=== PATIENT | female | born 1970 | race Caucasian/White ===

== ENCOUNTER 2017-03-18 09:50 | Emergency (ER) | payer OTHER ==
[~2017-03-18] VITALS: Ht 160 cm; Wt 67.1 kg
--- NOTE | ~2017-03-18 | EKG ---
[address] [place] [address] ELECTROCARDIOGRAM REPORT Name: RUFINA ROSAS Room #: [facility]#: [id number] Admission: 03/18/17 Attend Phys: Discharge: 03/18/17 Date of : 72 Report #: [id number] THIS REPORT FOR: //name// [facility] ED Test Date: 2017-03-18 Test Time: 10:12:25 Pat Name: RUFINA ROSAS Department: Room: Gender: F Motor Analyst: CONCHITA : 1970 Requested By: Fernando Chew Order Number: [id number] MD: Bishop Mullins Measurements Intervals [place] Rate: 66 P: 51 CO: 148 QRS: 15 QRSD: 85 T: 27 QT: 386 QTc: 405 Interpretive Statements Sinus rhythm No significant abnormality No previous ECG available for comparison Electronically Signed On 03-18-2017 13:57:14 CDT by Bishop Mullins [email or web address] <ELECTRONICALLY SIGNED> By: Bishop Mullins MD, [facility] 03/18/17 1357 1012 1012 Bishop Mullins MD, FACC /EPI
[2017-03-18] MEDS ORDERED: PHENAZOPYRIDIN100 M1 PO (10:01)
[2017-03-18] MEDS ORDERED: KETOCONAZOLE 2200 MG PO (10:02)
[2017-03-18] MEDS ORDERED: CIPRO500 M1 PO (10:02)
[2017-03-18 10:24] LABS: URINE BILIRUBIN NEGATIVE (Negative); URINE BLOOD NEGATIVE (Negative); URINE COLOR YELLOW; URINE GLUCOSE-RANDOM* NEGATIVE (Negative); URINE KETONES NEGATIVE (Negative); URINE NITRITE POSITIVE (Negative); URINE PROTEIN (DIPSTICK) TRACE (Negative)
[2017-03-18 10:27] LABS: MCH 28.5 pg (26.0-34.0)
[2017-03-18 10:29] LABS: HEMOGLOBIN 14.9 gm/dL (12.0-15.0); MCHC 33.2 g/dL (28.0-37.0); RBC 5.23 mil/uL (4.20-5.00); RDW 13.6 % (10.5-14.5); WBC 11.1 thou/uL (4.0-11.0)
[2017-03-18 10:30] LABS: MANUAL DIFF YES
[2017-03-18 10:31] LABS: CALCIUM 9.7 mg/dL (8.5-10.1); POTASSIUM 4.5 mmol/L (3.5-5.1)
[2017-03-18] MEDS ORDERED: PROGESTERONE200 MG PO (10:32)
[2017-03-18 10:33] LABS: BACTERIA 1-9 Few /HPF (None Seen); CASTS None Seen /LPF (None Seen); CRYSTALS None Seen /LPF (None Seen); SQUAMOUS 0-3 Few /LPF (0-3); URINE RBC 0-2 Rare /HPF (0-2); URINE WBC None Seen /HPF (0-5)
[2017-03-18] MEDS ORDERED: WP THYROID PO (10:33)
[2017-03-18] MEDS ORDERED: ALDACTONE50 MG PO (10:34)
[2017-03-18] MEDS ORDERED: VITAMIN B-12500 MCG PO (10:35)
[2017-03-18] MEDS ORDERED: VITAMIN D3400 UNIT PO (10:36)
[2017-03-18] MEDS ORDERED: DHEA50 MG PO (10:36)
[2017-03-18] MEDS ORDERED: PROBIOTIC1 EAC2 PO (10:36)
[2017-03-18 10:37] LABS: ALBUMIN 4.3 g/dL (3.4-5.0); TOTAL BILIRUBIN 0.6 mg/dL (<0.1-1.0); TOTAL PROTEIN 8.8 g/dL (6.4-8.2)
[2017-03-18 10:49] LABS: ABSOLUTE NEUTROPHILS 6.3 thou/uL (1.4-8.2); ANISOCYTOSIS 1+; TOTAL CELL COUNT 100
[2017-03-18 10:50] LABS: PLATELET COUNT 242 thou/uL (150-400)
[2017-03-18 12:57] VITALS: BP 111/67
== END 2017-03-18 12:54 | disposition home or self-care (01) ==
LOC: ER 09:50
PROVIDERS: Nurse Practitioner
DX: N39.0 Urinary tract infection, site not specified (principal); Z88.5 Allergy status to narcotic agent

== ENCOUNTER → 2018-05-17 | Outpatient (CLI) | payer OTHER ==
[~2018-05-17] VITALS: Ht 162.6 cm; Wt 70.8 kg
[~2018-05-17] MED LIST: ALDACTONE50 MG PO; CIPRO500 M1 PO; CRANBERRY500 MG PO; DHEA50 MG PO; KETOCONAZOLE 2200 MG PO; METHYL B-12 PO; PHENAZOPYRIDIN100 M1 PO; PROBIOTIC1 EAC2 PO; PROGESTERONE200 MG PO; SYNTHROID50 MCG PO; VITAMIN B-12500 MCG PO; VITAMIN D3400 UNIT PO; WP THYROID PO
--- NOTE | ~2018-05-17 | P ---
[facility] [place] [address] PROCEDURE REPORT Name: RUFINA ROSAS Room #: [facility]#: [id number] Admission: 05/17/18 Attend Phys: Alfonzo Cedeno MD Discharge: Date of : 72 Report #: [id number] THIS REPORT FOR: //name// CC: Alfonzo Zuniga BRIEF HISTORY: The patient is a 48-year-old woman with a recent change in bowel habits. PREOPERATIVE DIAGNOSIS: Change in bowel habits. POSTOPERATIVE DIAGNOSIS: Diminutive polyp, cecum. MEDICATIONS: Deep sedation with propofol per anesthesia. SPECIMEN: Cecal polyp. ESTIMATED BLOOD LOSS: 3 mL. PROCEDURE: Colonoscopy to cecum and terminal ileum with biopsy. FINDINGS: Prior to propofol sedation, procedure of colonoscopy discussed with the patient as well as potential risks and its complications. She indicates she understands and desires to proceed. DESCRIPTION OF PROCEDURE: With the patient in left lateral decubitus position, the Olympus video colonoscope was introduced in the rectum, advanced under direct vision to the cecum. Done with minimal difficulty. The cecum was identified by the ileocecal valve and the appendiceal orifice. I was able to visualize the distal segment of terminal ileum, which was inspected and noted to be unremarkable. At that point, scope was slowly withdrawn and careful circumferential views obtained. The prep was excellent. The mucosa was within normal limits, normal vascular pattern, normal light reflex. As we withdrew the scope, a diminutive polyp was seen and removed by biopsy from the cecum. As the scope was withdrawn through the remainder of the colon, no other mucosal abnormalities were seen. The mucosa throughout the remainder of the colon was normal. The scope was withdrawn and upon retroflexion, no abnormalities were seen. Scope was withdrawn. The patient tolerated the procedure well. CONDITION OF THE PATIENT UPON DISCHARGE: Following procedure, the patient drowsy, aroused and conversant. She will be discharged home when fully ambulatory INSTRUCTIONS TO THE PATIENT AND FAMILY AT THE TIME OF DISCHARGE: One diminutive polyp identified. We will follow up on the pathology. If this is an adenoma, she will return in 5 years. If it is hyperplastic, then 10 years would be [address] [address] PROCEDURE REPORT Name: RUFINA ROSAS [id number] Admission: 05/17/18 Attend Phys: Alfonzo Cedeno MD Discharge: Date of : 72 Report #: [id number] indicated. This is the patient's first colonoscopy. Withdrawal time from the cecum was 8 minutes 59 seconds. By: [id number] Alfonzo Cedeno MD /nt
--- NOTE | ~2018-05-17 | PATH ---
[facility] [place] [address] [address] PATHOLOGY RPT PROCEDURE Name: KERRY ROSAS [facility].#: [id number] Admission: 05/17/18 Date of : 72 Discharge: Report #: [id number] Path Case #: [id number] [facility] Accession Number: [id number] . 01 Material submitted: . CECAL POLYP BX . 01 Clinical history: . Pre-OP DX: Change in bowel habits Post-OP DX: Colon polyp . 02 Diagnosis: Colonic mucosa, "cecal polyp biopsy": - Tubular adenoma. - There is no evidence of high grade dysplasia or malignancy. . (SHA:mml; 05/20/18) QL/05/20/2018 . 02 Electronically signed: . Irwin Baum MD, Pathologist NPI- [id number] . 01 Gross description: . Received in formalin labeled "Antonio, Kerry, cecal polyp BX," is a single segment of darby soft tissue measuring 0.5 cm in maximum dimension. The specimen is entirely submitted in cassette A1. (TSD; 05/17/2018) TOB/TOB . 02 Pathologist provided ICD-10: D12.0 . 02 CPT . 411902 Specimen Comment: A courtesy copy of this report has been sent to Specimen Comment: [phone], . Specimen Comment: Report sent to / DR JAMIL Performed at: [address] [place] [id number] MD Alfredo Ariza MD Phone: [phone] Performed at: [address] [id number] MD Casi Moeller MD Phone: [phone]
== END | disposition home or self-care (01) ==
LOC: GI 07:50
DX: D12.0 Benign neoplasm of cecum (principal); E03.9 Hypothyroidism, unspecified; Z98.41 Cataract extraction status, right eye; Z98.890 Other specified postprocedural states; Z87.442 Personal history of urinary calculi; Z79.899 Other long term (current) drug therapy; Z88.6 Allergy status to analgesic agent
CPT/HCPCS: 62110; 62900

== ENCOUNTER 2019-04-26 10:48 | Emergency (ER) | payer OTHER ==
[~2019-04-26] VITALS: Ht 160 cm; Wt 68.0 kg
[2019-04-26] MEDS ORDERED: CLARITIN10 MG PO (11:11)
[2019-04-26 11:19] LABS: ABSOLUTE NEUTROPHILS 2.9 thou/uL (1.4-8.2); BASOPHILS 1.1 % (0.0-2.0); EOSINOPHILS 1.7 % (0.0-3.0); HEMATOCRIT 41.5 % (37.0-47.0); HEMOGLOBIN 13.7 gm/dL (12.0-15.0); LYMPHOCYTES 36.1 % (24.0-44.0); MCV 88.1 fL (80.0-100.0); MONOCYTES 8.6 % (1.0-8.0); PLATELET COUNT 293 thou/uL (150-400); POLYS 52.5 % (36.0-66.0); RBC 4.71 mil/uL (4.20-5.00); RDW 13.6 % (10.5-14.5); WBC 5.6 thou/uL (4.0-11.0)
[2019-04-26 11:25] LABS: CALCIUM 9.3 mg/dL (8.5-10.1); CREATININE 0.9 mg/dL (0.6-1.0); POTASSIUM 3.8 mmol/L (3.5-5.1)
[2019-04-26 11:27] LABS: URINE BILIRUBIN NEGATIVE (Negative); URINE BLOOD NEGATIVE (Negative); URINE CLARITY CLEAR; URINE COLOR YELLOW; URINE GLUCOSE-RANDOM* NEGATIVE (Negative); URINE KETONES NEGATIVE (Negative); URINE LEUKOCYTES-REFLEX NEGATIVE (Negative); URINE NITRITE-REFLEX NEGATIVE (Negative); URINE PROTEIN (DIPSTICK) NEGATIVE (Negative); URINE SPECIFIC GRAVITY 1.015 (1.005-1.035); URINE UROBILINOGEN 0.2 E.U./dl (0.2-1.0)
[2019-04-26 11:31] LABS: ALBUMIN 3.9 g/dL (3.4-5.0); TOTAL BILIRUBIN 0.4 mg/dL (<0.1-1.0); TOTAL PROTEIN 8.5 g/dL (6.4-8.2)
[2019-04-26] MEDS ORDERED: BENTYL 20 MG TA20 M1 PO (12:27)
[2019-04-26] MEDS ORDERED: ONDANSETRON HCL4 M2 PO (12:27)
[2019-04-26 12:41] VITALS: BP 95/57
== END 2019-04-26 13:12 | disposition home or self-care (01) ==
LOC: ER 10:48
PROVIDERS: Nurse Practitioner Family
DX: R30.0 Dysuria (principal); R19.7 Diarrhea, unspecified; R53.83 Other fatigue; E03.9 Hypothyroidism, unspecified; Z90.89 Acquired absence of other organs; Z87.442 Personal history of urinary calculi; Z98.890 Other specified postprocedural states; Z98.41 Cataract extraction status, right eye; Z88.5 Allergy status to narcotic agent